=== PATIENT | female | born 1955 | race Caucasian/White ===

== ENCOUNTER 2023-10-07 13:47 | Outpatient (RCR) | payer MEDICARE, OTHER, SELFPAY ==
[2023-10-07 13:58] VITALS: BP 119/69
[2023-10-07] MEDS: XOLAIR 150 MG SC ×2 (14:04)
== END 2023-10-10 10:10 | disposition home or self-care (01) ==
LOC: OID 13:47
PROVIDERS: ATTENDING PHYSICIAN Internal Medicine; FAMILY PHYSICIAN Internal Medicine
DX: L50.1 Idiopathic urticaria (principal)
CPT/HCPCS: 96372; J2357

== ENCOUNTER 2023-11-01 15:18 | Outpatient (RCR) | payer MEDICARE, OTHER, SELFPAY ==
[2023-11-01 15:25] VITALS: BP 99/65
[2023-11-01] MEDS: XOLAIR 150 MG SC ×2 (15:34)
== END 2023-11-02 09:03 | disposition home or self-care (01) ==
LOC: OID 15:18
PROVIDERS: ATTENDING PHYSICIAN Internal Medicine; FAMILY PHYSICIAN Internal Medicine
DX: L50.1 Idiopathic urticaria (principal)
CPT/HCPCS: 96372; J2357

== ENCOUNTER 2023-12-02 10:06 | Outpatient (RCR) | payer MEDICARE, OTHER, SELFPAY ==
[2023-12-02 10:18] VITALS: BP 109/63
[2023-12-02] MEDS: XOLAIR 150 MG SC ×2 (10:31→10:32)
== END 2023-12-20 23:59 | disposition home or self-care (01) ==
LOC: OID 10:06
PROVIDERS: ATTENDING PHYSICIAN Internal Medicine; FAMILY PHYSICIAN Internal Medicine
DX: L50.1 Idiopathic urticaria (principal)
CPT/HCPCS: 96372; J2357

== ENCOUNTER 2023-12-30 11:33 | Outpatient (RCR) | payer MEDICARE, OTHER, SELFPAY ==
[2023-12-30 11:42] VITALS: BP 121/73
[2023-12-30] MEDS: XOLAIR 150 MG SC ×2 (11:51)
== END 2024-01-02 09:03 | disposition home or self-care (01) ==
LOC: OID 11:33
PROVIDERS: ATTENDING PHYSICIAN Internal Medicine; FAMILY PHYSICIAN Internal Medicine
DX: L50.1 Idiopathic urticaria (principal)
CPT/HCPCS: 96372; J2357

== ENCOUNTER → 2024-01-24 07:41 | Outpatient (REF) | payer MEDICARE, OTHER, SELFPAY | LOC: RAD 07:41 | PROVIDERS: ATTENDING PHYSICIAN Obstetrics & Gynecology Gynecology; FAMILY PHYSICIAN Internal Medicine | DX: M81.0 Age-related osteoporosis without current pathological fracture (principal) | CPT/HCPCS: 77080; 77081 ==

== ENCOUNTER 2024-01-27 10:05 | Outpatient (RCR) | payer MEDICARE, OTHER, SELFPAY ==
[2024-01-27 10:12] VITALS: BP 124/63
[2024-01-27] MEDS: XOLAIR 150 MG SC ×2 (10:31→10:32)
== END 2024-01-30 08:46 | disposition home or self-care (01) ==
LOC: OID 10:05
PROVIDERS: ATTENDING PHYSICIAN Internal Medicine; FAMILY PHYSICIAN Internal Medicine
DX: L50.1 Idiopathic urticaria (principal)
CPT/HCPCS: 96372; J2357

== ENCOUNTER 2024-02-27 10:34 | Outpatient (RCR) | payer MEDICARE, OTHER, SELFPAY ==
[2024-02-27 10:43] VITALS: BP 116/64
[2024-02-27] MEDS: XOLAIR 150 MG SC ×2 (10:52)
== END 2024-02-28 10:51 | disposition home or self-care (01) ==
LOC: OID 10:34
PROVIDERS: ATTENDING PHYSICIAN Internal Medicine; FAMILY PHYSICIAN Internal Medicine
DX: L50.1 Idiopathic urticaria (principal)
CPT/HCPCS: 96372; J2357

== ENCOUNTER 2024-03-26 10:48 | Outpatient (RCR) | payer MEDICARE, OTHER, SELFPAY ==
[2024-03-26 10:50] VITALS: BP 116/76
[2024-03-26] MEDS: XOLAIR 150 MG SC ×2 (11:00→11:01)
== END 2024-03-27 08:45 | disposition home or self-care (01) ==
LOC: OID 10:48
PROVIDERS: ATTENDING PHYSICIAN Internal Medicine; FAMILY PHYSICIAN Internal Medicine
DX: L50.1 Idiopathic urticaria (principal)
CPT/HCPCS: 96372; J2357

== ENCOUNTER 2024-04-30 10:49 | Outpatient (RCR) | payer MEDICARE, OTHER, SELFPAY ==
[2024-04-30 11:04] VITALS: BP 125/70
[2024-04-30] MEDS: XOLAIR 150 MG SC ×2 (11:10)
== END 2024-05-01 09:15 | disposition home or self-care (01) ==
LOC: OID 10:49
PROVIDERS: ATTENDING PHYSICIAN Internal Medicine; FAMILY PHYSICIAN Internal Medicine
DX: L50.1 Idiopathic urticaria (principal)
CPT/HCPCS: 96372; J2357

== ENCOUNTER 2024-05-30 15:15 | Outpatient (RCR) | payer MEDICARE, OTHER, SELFPAY ==
[2024-05-30 15:24] VITALS: BP 113/71
[2024-05-30] MEDS: XOLAIR 150 MG SC ×2 (15:32)
== END 2024-05-31 09:19 | disposition home or self-care (01) ==
LOC: OID 15:15
PROVIDERS: ATTENDING PHYSICIAN Internal Medicine; FAMILY PHYSICIAN Internal Medicine
DX: L50.1 Idiopathic urticaria (principal)
CPT/HCPCS: 96372; J2357

== ENCOUNTER 2024-06-27 13:47 | Outpatient (RCR) | payer MEDICARE, OTHER, SELFPAY ==
[2024-06-27 14:03] VITALS: BP 125/74
[2024-06-27] MEDS: XOLAIR 150 MG SC ×2 (14:10)
== END 2024-06-28 10:03 | disposition home or self-care (01) ==
LOC: OID 13:47
PROVIDERS: ATTENDING PHYSICIAN Internal Medicine; FAMILY PHYSICIAN Internal Medicine
DX: L50.1 Idiopathic urticaria (principal)
CPT/HCPCS: 96372; J2357

== ENCOUNTER 2024-07-25 11:29 | Outpatient (RCR) | payer MEDICARE, OTHER, SELFPAY ==
[2024-07-25 11:40] VITALS: BP 108/68
[2024-07-25] MEDS: XOLAIR 150 MG SC ×2 (11:49)
== END 2024-07-26 09:30 | disposition home or self-care (01) ==
LOC: OID 11:29
PROVIDERS: ATTENDING PHYSICIAN Internal Medicine; FAMILY PHYSICIAN Internal Medicine
DX: L50.1 Idiopathic urticaria (principal)
CPT/HCPCS: 96372; J2357

== ENCOUNTER 2024-08-29 11:33 | Outpatient (RCR) | payer MEDICARE, OTHER, SELFPAY ==
[2024-08-29 11:39] VITALS: BP 108/68
[2024-08-29] MEDS: XOLAIR 150 MG SC ×2 (11:48)
== END 2024-08-30 09:14 | disposition home or self-care (01) ==
LOC: OID 11:33
PROVIDERS: ATTENDING PHYSICIAN Internal Medicine; FAMILY PHYSICIAN Internal Medicine
DX: L50.1 Idiopathic urticaria (principal)
CPT/HCPCS: 96372; J2357

== ENCOUNTER → 2024-08-31 07:53 | Outpatient (REF) | payer MEDICARE, OTHER, SELFPAY | LOC: WDC 07:53 | PROVIDERS: ATTENDING PHYSICIAN Obstetrics & Gynecology Gynecology; FAMILY PHYSICIAN Internal Medicine | DX: Z12.31 Encounter for screening mammogram for malignant neoplasm of breast (principal) | CPT/HCPCS: 77063; 77067 ==

== ENCOUNTER 2024-09-26 11:36 | Outpatient (RCR) | payer MEDICARE, OTHER, SELFPAY ==
[2024-09-26 11:55] VITALS: BP 124/71
[2024-09-26] MEDS: XOLAIR 150 MG SC ×2 (11:59)
== END 2024-10-19 23:59 | disposition home or self-care (01) ==
LOC: OID 11:36
PROVIDERS: ATTENDING PHYSICIAN Internal Medicine; FAMILY PHYSICIAN Internal Medicine
DX: L50.1 Idiopathic urticaria (principal)
CPT/HCPCS: 96372; J2357

== ENCOUNTER 2024-10-24 11:13 | Outpatient (RCR) | payer MEDICARE, OTHER, SELFPAY ==
[2024-10-24 11:28] VITALS: BP 121/74
[2024-10-24] MEDS: XOLAIR 150 MG SC ×2 (11:31→11:32)
== END 2024-10-25 09:33 | disposition home or self-care (01) ==
LOC: OID 11:13
PROVIDERS: ATTENDING PHYSICIAN Internal Medicine; FAMILY PHYSICIAN Internal Medicine
DX: L50.1 Idiopathic urticaria (principal)
CPT/HCPCS: 96372; J2357

== ENCOUNTER 2024-11-21 10:07 | Outpatient (RCR) | payer MEDICARE, OTHER, SELFPAY ==
[2024-11-21 10:24] VITALS: BP 114/70
[2024-11-21] MEDS: XOLAIR 150 MG SC ×2 (10:30)
== END 2024-11-22 08:22 | disposition home or self-care (01) ==
LOC: OID 10:07
PROVIDERS: ATTENDING PHYSICIAN Internal Medicine; FAMILY PHYSICIAN Internal Medicine
DX: L50.1 Idiopathic urticaria (principal)
CPT/HCPCS: 96372; J2357

== ENCOUNTER 2025-01-18 10:56 | Outpatient (RCR) | payer MEDICARE, OTHER, SELFPAY ==
[2024-12-21 10:08] VITALS: BP 111/67
[2024-12-21] MEDS: XOLAIR 150 MG SC ×2 (10:30→10:31)
[2025-01-04 07:51] VITALS: BP 104/73
[2025-01-04] MEDS: XOLAIR 150 MG SC ×2 (07:58→07:59)
[2025-01-18 11:08] VITALS: BP 102/68
[2025-01-18] MEDS: XOLAIR 150 MG SC ×2 (11:15)
== END 2025-01-19 23:59 | disposition home or self-care (01) ==
LOC: OID 10:56
PROVIDERS: ATTENDING PHYSICIAN Internal Medicine; FAMILY PHYSICIAN Internal Medicine
DX: L50.1 Idiopathic urticaria (principal)
CPT/HCPCS: 96372; J2357

== ENCOUNTER 2025-02-13 10:03 | Outpatient (RCR) | payer MEDICARE, OTHER, SELFPAY ==
[2025-01-30 10:13] VITALS: BP 121/72
[2025-01-30] MEDS: XOLAIR 150 MG SC ×2 (10:22)
[2025-02-13 10:14] VITALS: BP 110/60
[2025-02-13] MEDS: XOLAIR 150 MG SC ×2 (10:25)
== END 2025-02-14 08:04 | disposition home or self-care (01) ==
LOC: OID 10:03
PROVIDERS: ATTENDING PHYSICIAN Internal Medicine; FAMILY PHYSICIAN Internal Medicine
DX: L50.1 Idiopathic urticaria (principal)
CPT/HCPCS: 96372; J2357

== ENCOUNTER 2025-03-13 10:07 | Outpatient (RCR) | payer MEDICARE, OTHER, SELFPAY ==
[2025-02-27 10:13] VITALS: BP 114/70
[2025-02-27] MEDS: XOLAIR 150 MG SC ×2 (10:27)
[2025-03-13 10:24] VITALS: BP 127/65
[2025-03-13] MEDS: XOLAIR 150 MG SC ×2 (10:27)
== END 2025-03-14 09:00 | disposition home or self-care (01) ==
LOC: OID 10:07
PROVIDERS: ATTENDING PHYSICIAN Internal Medicine; FAMILY PHYSICIAN Internal Medicine
DX: L50.1 Idiopathic urticaria (principal)
CPT/HCPCS: 96372; J2357

== ENCOUNTER 2025-04-17 10:06 | Outpatient (RCR) | payer MEDICARE, OTHER, SELFPAY ==
[2025-03-27 10:25] VITALS: BP 126/66
[2025-03-27] MEDS: XOLAIR 150 MG SC ×2 (10:33)
[2025-04-17 10:10] VITALS: BP 119/70
[2025-04-17] MEDS: XOLAIR 150 MG SC ×2 (10:23)
== END 2025-04-18 09:16 | disposition home or self-care (01) ==
LOC: OID 10:06
PROVIDERS: ATTENDING PHYSICIAN Internal Medicine; FAMILY PHYSICIAN Internal Medicine
DX: L50.1 Idiopathic urticaria (principal)
CPT/HCPCS: 96372; J2357

== ENCOUNTER 2025-05-20 10:03 | Outpatient (RCR) | payer MEDICARE, OTHER, SELFPAY ==
[2025-05-01 10:11] VITALS: BP 118/65
[2025-05-01] MEDS: XOLAIR 150 MG SC ×2 (10:20)
[2025-05-20 10:15] VITALS: BP 103/71
[2025-05-20] MEDS: XOLAIR 150 MG SC ×2 (10:20)
== END 2025-05-21 23:59 | disposition home or self-care (01) ==
LOC: OID 10:03
PROVIDERS: ATTENDING PHYSICIAN Internal Medicine; FAMILY PHYSICIAN Internal Medicine
DX: L50.1 Idiopathic urticaria (principal)
CPT/HCPCS: 96372; J2357

== ENCOUNTER 2025-06-19 10:44 | Outpatient (RCR) | payer MEDICARE, OTHER, SELFPAY ==
[2025-06-05 11:04] VITALS: BP 124/69
[2025-06-05] MEDS: XOLAIR 150 MG SC ×2 (11:11)
[2025-06-19 11:03] VITALS: BP 117/73
[2025-06-19] MEDS: XOLAIR 150 MG SC ×2 (11:10→11:11)
== END 2025-06-21 23:59 | disposition home or self-care (01) ==
LOC: OID 10:44
PROVIDERS: ATTENDING PHYSICIAN Internal Medicine; FAMILY PHYSICIAN Internal Medicine
DX: L50.1 Idiopathic urticaria (principal)
CPT/HCPCS: 96372; J2357

== ENCOUNTER 2025-07-01 06:21 | Day surgery (SDC) | payer MEDICARE, OTHER, SELFPAY | END 2025-07-01 14:54 | disposition home or self-care (01) | LOC: GI 06:21 | PROVIDERS: ATTENDING PHYSICIAN Internal Medicine Gastroenterology; FAMILY PHYSICIAN Internal Medicine | DX: Z12.11 Encounter for screening for malignant neoplasm of colon (principal); D12.4 Benign neoplasm of descending colon; Q43.8 Other specified congenital malformations of intestine; K57.30 Diverticulosis of large intestine without perforation or abscess without bleeding; K62.1 Rectal polyp; K64.8 Other hemorrhoids; Z86.0100 Personal history of colon polyps, unspecified | CPT/HCPCS: 45385; 45380; 88305 ==

== ENCOUNTER 2025-07-17 08:28 | Outpatient (RCR) | payer MEDICARE, OTHER, SELFPAY ==
[2025-07-03 11:03] VITALS: BP 109/84
[2025-07-03] MEDS: XOLAIR 150 MG SC ×2 (11:08)
[2025-07-17 08:36] VITALS: BP 132/81
[2025-07-17] MEDS: XOLAIR 150 MG SC ×2 (08:40)
== END 2025-07-21 23:59 | disposition home or self-care (01) ==
LOC: OID 08:28
PROVIDERS: ATTENDING PHYSICIAN Internal Medicine; FAMILY PHYSICIAN Internal Medicine
DX: L50.1 Idiopathic urticaria (principal)
CPT/HCPCS: 96372; J2357